=== PATIENT | male | born 1975 | race Two or more races ===

== ENCOUNTER 2023-07-03 16:14 | Emergency (ER) | payer MEDICAID ==
[~2023-07-03] VITALS: Ht 172.7 cm; Wt 98.1 kg
[2023-07-03 16:49] VITALS: BP 146/65; PULSE 67; RESP 18; TEMP 98.2; O2SAT 99
[2023-07-03] MEDS ORDERED: KETOROLAC TROMETH 60MG/2ML VIAL ONE (16:54)
[2023-07-03] MEDS ORDERED: KETOROLAC TROMETH 60MG/2ML VIAL IM ONE (17:00)
[2023-07-03] MEDS ORDERED: IBUP-1456 PO (17:27)
== END 2023-07-03 17:57 | disposition left against medical advice (07) ==
LOC: ER 16:14
DX: M23.92 Unspecified internal derangement of left knee (principal)
CPT/HCPCS: 73562; 96372; 99283; J1885